=== PATIENT | female | born 1970 | race Caucasian/White ===

== ENCOUNTER 2016-09-20 15:04 | Observation (INO) | payer MEDICARE, OTHER ==
[~2016-09-20] VITALS: Ht 162.6 cm; Wt 60.1 kg
[2016-09-20 16:33] LABS: HEMOGLOBIN 13.5 gm/dl (12.3-15.3); RED BLOOD COUNT 4.11 M/UL (4.00-5.10); WHITE BLOOD COUNT 6.2 K/UL (4.5-11.0)
[2016-09-20 16:57] LABS: BUN/CREATININE RATIO 20 (0-10)
[2016-09-20] MEDS ORDERED: NEURONTIN800 MG PO (22:20)
[2016-09-20] MEDS ORDERED: ELAVIL 50 MG TA50 MG PO (22:20)
[2016-09-20] MEDS ORDERED: HYDROCHLOROTHIA25 MG PO (22:21)
[2016-09-20] MEDS ORDERED: OMEPRAZOLE20 M1 PO (22:22)
[2016-09-20] MEDS ORDERED: CLARITIN 10MG T10 MG PO (22:22)
[2016-09-20] MEDS ORDERED: ACCUPRIL 20 MG20 MG PO (22:23)
[2016-09-20] MEDS ORDERED: TIZANIDINE HCL4 M1 PO (22:24)
[2016-09-21] MEDS ORDERED: ASPIRIN81 MG PO (11:01)
[2016-09-21] MEDS ORDERED: LOPRESSOR 25 MG25 MG PO (11:02)
[2016-09-21] MEDS ORDERED: NITROSTAT 0.40.4 MG SL (11:03)
== END 2016-09-21 12:14 | disposition home or self-care (01) ==
LOC: ER1 15:04 → ZEROF 18:20 → PROG CARE 22:13
PROVIDERS: Emergency Medicine; ADMIT Internal Medicine
DX: R07.9 Chest pain, unspecified (principal); I10 Essential (primary) hypertension; F41.9 Anxiety disorder, unspecified; Z79.82 Long term (current) use of aspirin; Z79.899 Other long term (current) drug therapy; Z86.73 Personal history of transient ischemic attack (TIA), and cerebral infarction without residual deficits; Z88.5 Allergy status to narcotic agent; Z88.6 Allergy status to analgesic agent; Z88.2 Allergy status to sulfonamides; Z82.49 Family history of ischemic heart disease and other diseases of the circulatory system; R42 Dizziness and giddiness
CPT/HCPCS: ECHO; 36415; 71010; 80053; 80061; 82550; 82553; 83690; 83880; 84484; 85025; 85610; 85730; 93005; 93306; 96361; 96365; 96366; 99285; G0378; J1650

== ENCOUNTER → 2016-10-15 | Outpatient (CLI) | payer MEDICARE, OTHER ==
[~2016-10-15] MED LIST: ACCUPRIL 20 MG20 MG PO; ASPIRIN81 MG PO; CLARITIN 10MG T10 MG PO; ELAVIL 50 MG TA50 MG PO; HYDROCHLOROTHIA25 MG PO; LOPRESSOR 25 MG25 MG PO; NEURONTIN800 MG PO; NITROSTAT 0.40.4 MG SL; OMEPRAZOLE20 M1 PO; TIZANIDINE HCL4 M1 PO
== END ==
LOC: HEART 5 10-01 08:15
DX: R07.9 Chest pain, unspecified (principal)
CPT/HCPCS: 78452; A9502